=== PATIENT | male | born 1995 | race Caucasian/White ===

== ENCOUNTER 2018-03-20 21:18 | Emergency (ER) | payer MEDICAID ==
[~2018-03-20] VITALS: Ht 177.8 cm; Wt 81.2 kg
[2018-03-20 21:24] VITALS: Ht 177.8 cm; Wt 81.2 kg
[2018-03-21 01:05] VITALS: BP 114/64
== END 2018-03-21 01:05 | disposition home or self-care (01) ==
LOC: ED 21:18
DX: R10.30 Lower abdominal pain, unspecified (principal); R03.0 Elevated blood-pressure reading, without diagnosis of hypertension